=== PATIENT | female | born 1960 | race Caucasian/White ===

== ENCOUNTER → 2020-09-25 11:00 | Outpatient (CLI) | payer BC, SELFPAY ==
[2020-09-25 14:48] LABS: Basophils % 0.6 % (0.1-2.0); Eosinophils # 0.1 K/mm3 (0.0-0.4); Eosinophils % 2.4 % (0.1-12.0); Hematocrit 43.1 % (37.0-47.0); Hemoglobin 14.1 g/dL (12.2-16.2); Lymphocytes # 1.2 K/mm3 (0.7-4.5); Lymphocytes % 24.5 % (10-50); Mean Corpuscular HGB Conc 32.7 g/dL (31.8-35.4); Mean Corpuscular Volume 88.8 fl (81-99); Mean Platelet Volume 9.5 fl (7.4-10.4); Monocytes # 0.4 K/mm3 (0.1-1.0); Monocytes % 8.9 % (1.7-9.3); Neutrophils # 3.1 K/mm3 (1.8-7.8); Neutrophils % 63.6 % (37.0-80.0); Platelet Count 366 K/mm3 (142-424); Red Blood Count 4.85 M/mm3 (4.20-5.40); Red Cell Distribution Width 13.3 % (11.5-17.5); White Blood Count 4.9 K/mm3 (4.8-10.8)
== END ==
PROVIDERS: PCP Family Medicine; Visit Provider Family Medicine
DX: Z20.822 Contact with and (suspected) exposure to COVID-19 (principal)
CPT/HCPCS: 36415; 85025; U0003

== ENCOUNTER 2024-02-24 13:00 | Emergency (ER) | payer BC, SELFPAY ==
--- NOTE | 2024-02-24 13:02 | XR_ITS ---
FINAL REPORT CLINICAL HISTORY: fall, wrist pain COMPARISON: None FINDINGS: LEFT WRIST Three views of the left wrist were obtained. There is a mildly impacted transverse fracture of the distal radial metaphysis and a tiny fracture of the ulnar styloid. There is moderate chondrocalcinosis. Mild hypertrophic changes are noted at the basilar joint. The soft tissues are unremarkable. IMPRESSION: Distal radial metaphysis fracture and ulnar styloid fracture. Reviewed, Interpreted and Dictated by Inderjit Callejas MD Transcribed by Bridgette Montano Authenticated and . [facility]
[2024-02-24 13:10] VITALS: BP 151/92; PULSE 80; RESP 19; TEMP 36.8; O2SAT 98; BMI 29.8
--- NOTE | 2024-02-24 13:36 | ED_ITS ---
Discharge Plan Disposition Patient Disposition: Home, Self-Care Condition: Good Prescriptions Prescriptions: New ibuprofen 600 mg tablet 600 mg PO Q6HP PRN (Reason: Moderate Pain) Qty: 20 0RF Referrals Follow up/Referrals: Raymundo Lewis MD [Primary Care Provider] - See instructions Jose Carlos Kelley DO [Staff Physician] - See instructions (Call office for appointment) Activity Restrictions/Add. Instructions Additional Instructions/Restrictions: *RICE, Rest the extremity, Ice 15-20 minutes 3-4 times daily, Compress- wear the jose maria wrap as discussed as much as possible to help reduce swelling and pain, Elevate the extremity when at rest *Jose Maria wrap, orhthoglass and sling is for support and help control swelling, Do not remove orthoglass Be sure that is not to tight but not to loose either *Elevate when resting? *Ibuprofen 600 every 6-8 hours as needed for pain an inflammation. If need something more can take Tylenol in between doses of Ibuprofen to help Immediately follow up with your family doctor for new or worsening of symptoms, or no noticeable improvement over the next 3-5 days Call Orthopedic Clinical Impressions Clinical Impression: Fracture of wrist Qualifiers: Encounter type: initial encounter Fracture type: closed Laterality: left Q ualified Code(s): S62.102A - Fracture of unspecified carpal bone, left wrist, initial encounter for closed fracture Stand Alone Forms Stand Alone Forms: Work/School Release Instructions Patient Instructions: Wrist Fracture, DI for Wrist Fracture, How To Perform RICE (Rest, Ice, Compress, Elevate), Ibuprofen Print Language Print Language: Panamanian Discharge ED Provider: Nimo Mckeon [facility] General Stated complaint: fell left wrist pain Mode of Arrival: Ambulatory Source of Information: Patient Limitations: No Limitations Time Seen by Provider: 02/24/24 13:36 Description of Symptoms (Recalled from Triage Doc. by RN): PATIENT C/O INJURY TO LEFT WRIST AFTER SLIPPING ON ICE AND FALLING TODAY HEENT Symptoms (Recalled from RN notes): No Resp Symptoms (Recalled from RN notes): No Skin Symptoms (Recalled from RN notes): No MS Symptoms (Recalled from RN notes): Yes Functional Status (Recalled from RN notes): WNL History of Present Illness Provider Complaint: Patient states that she was packing in groceries earlier and she slipped on the ice and stuck her left hand out to catch her fall and been having pain in her left wrist and swelling in the wrist and top of hand so she came in to get it checked Denies any other injury and denies LOC Related Data Previous Rx's ?Medication ?Instructions ?Recorded ibuprofen 600 mg tablet 600 mg PO Q6HP PRN Moderate Pain 02/24/24 #20 tabs Allergies Allergy/AdvReac Type Severity Reaction Status Date / Time egg (EGG) Allergy Intermediate STOMACH Verified 02/24/24 13:21 PAIN Worker's Comp Is this a Worker's Comp case?: No PFSH [facility] Disclaimer: The information contained in this section may have been updated after the patient was seen, as this information can be updated by other users. Medical History (Updated 02/24/24 @ 13:47 by Nimo Mckeon APRN) No significant past medical history Social History Smoking Status: Unknown if ever smoked alcohol intake: never current occupational status: employed Travel in the last 8 weeks: None ROS Obtained: Yes All systems reviewed & no additional complaints except as documented and Yes Systems reviewed as appropriate & no additional complaints except as documented Constitutional Constitutional: Reports system reviewed and no additional complaints, except as documented and Reports as per HPI ENT Ears, Nose, Mouth, and Throat: Reports system reviewed and no additional complaints, except as documented and Reports as per HPI Cardiovascular Cardiovascular: Reports system reviewed and no additional complaints, except as documented and Reports as per HPI Respiratory Respiratory: Reports system reviewed and no additional complaints, except as documented and Reports as per HPI Gastrointestinal Gastrointestingal: Reports system reviewed and no additional complaints, except as documented and as per HPI Genitourinary Female Genitourinary: Reports system reviewed and no additional complaints, except as documented and Reports as per HPI Musculoskeletal Musculoskeletal: Reports system reviewed and no additional complaints, except as documented, Reports as per HPI and Reports other Comments: Pain and swelling in wrist since falling prior too arrival Physical Exam General General appearance: alert and in no apparent distress Respiratory Respiratory exam: Present normal lung sounds bilaterally; Absent respiratory distress or wheezes Cardiovascular Cardiovascular exam: Present regular rate, normal rhythm and normal heart sounds Abdominal Exam Abdominal exam: Present soft and normal bowel sounds; Absent distention or tenderness Expanded Upper Extremity Exam Left: Forearm/Wrist exam: Present tenderness, swelling and ecchymosis; Absent abrasion, laceration or erythema L/R Arms Top View: 2 1. tenderness pain and swelling after falling earlier on ice Vascular exam: Normal capillary refill and radial pulse Neurological Exam Neurological exam: Present alert, oriented X3 and normal gait Medical Decision Making Medical Records Screening: Per USPSTF and CDC recommendations, given the prevalence of disease in our region, it is our hospital?s policy to screen for HIV and viral Hepatitis for all patients aged 18 and over and those with ongoing risk factors. Mt Inquiry Pt receiving controlled substance: No Mt was queried for this patient: No Vital Signs: 02/24/24 13:10 Temperature 98.3 F Temperature Source Oral Pulse Rate [Right Brachial] 80 Respiratory Rate 19 Blood Pressure [Right Arm] 151/92 H Blood Pressure Mean [Right Arm] 111 Blood Pressure Source [Right Arm] Automatic Cuff Blood Pressure Position [Right Arm] Sitting 02 Sat by Pulse Oximetry 98 Oxygen Delivery Method Room Air Orders (Tests/Meds): ORDERS Category Date Time Status XR wrist LT min 3V Stat Exams 02/24/24 13:02 Taken Radiology Data #1: Image(s): Wrist Image Reviewed: Yes I have reviewed radiologist's interpretation Distal radial metaphysis fracture and ulnar styloid fracture Procedures Orthopedic Splinting/Casting Injury #1: Side: left Upper Extremity Injury Location: wrist Upper Extremity Immobilizer: sugar tong splint and applied by nurse/dr mckeon Post Cast/Splinting Neuro Status: intact and no change Post Cast/Splinting Vasc Status: intact and no change
[2024-02-24] MEDS: IBUPROFEN 400 MG TABLET 800 MG PO (14:15)
[2024-02-24 14:22] VITALS: BP 151/92; PULSE 80; RESP 19; TEMP 36.8; O2SAT 98
== END 2024-02-24 14:39 | disposition home or self-care (01) ==
PROVIDERS: Emergency Provider Nurse Practitioner; PCP Family Medicine
DX: S62.102A Fracture of unspecified carpal bone, left wrist, initial encounter for closed fracture (principal); W00.0XXA Fall on same level due to ice and snow, initial encounter
CPT/HCPCS: 29105; 73110; 99214; G0382

== ENCOUNTER 2024-03-09 14:39 | Outpatient (CLI) | payer BC, SELFPAY ==
--- NOTE | 2024-03-09 14:41 | XR_ITS ---
FINAL REPORT CLINICAL HISTORY: fx from fall COMPARISON: 02/24/2024 FINDINGS: LEFT WRIST Three views demonstrate interval placement of an overlying cast. There is a comminuted fracture of the distal radial metaphysis with intra-articular extension and dorsal angulation. Fracture fragments are similar to the previous study. Hypertrophic changes are seen of the basilar joint. . The soft tissues are unremarkable. IMPRESSION: Stable appearing distal radius fracture as described. Interval cast placement. Reviewed, Interpreted and Dictated by Inderjit Callejas MD Transcribed by Whitney Trejo Authenticated and [facility]
== END 2024-03-09 23:59 | disposition home or self-care (01) ==
LOC: RAD 14:39
PROVIDERS: PCP Family Medicine; Visit Provider Physician Assistant
DX: M25.532 Pain in left wrist (principal); S62.102A Fracture of unspecified carpal bone, left wrist, initial encounter for closed fracture
CPT/HCPCS: 73110

== ENCOUNTER 2024-03-10 09:26 | Outpatient (CLI) | payer BC, SELFPAY ==
--- NOTE | 2024-03-10 09:59 | ECG_ITS ---
APPROVED REPORT Exam: Resting ECG HR:77 bpm ECG Measurements Heart Rate 77 AXES WI 164 P 48 QRSd 89 QRS 9 QT 353 T 33 QTc 385 Conclusion SINUS RHYTHM WITH OCCASIONAL SUPRAVENTRICULAR PREMATURE COMPLEXES BORDERLINE ECG UNCONFIRMED REPORT Electronically signed by : Rodrigo Dias MD 03/11/2024 21:00:51
[2024-03-10 10:04] VITALS: BMI 29.0
[2024-03-10 10:31] LABS: Chloride 102 mmol/L (98-107); Potassium 3.7 mmoL/L (3.5-5.1); Sodium 139 mmol/L (136-145)
[2024-03-10 10:32] LABS: Basophils % 0.6 % (0.1-2.0); Eosinophils # 0.1 K/mm3 (0.0-0.4); Eosinophils % 0.9 % (0.1-12.0); Hematocrit 38.1 % (37.0-47.0); Hemoglobin 12.7 g/dL (12.2-16.2); Lymphocytes # 1.4 K/mm3 (0.7-4.5); Lymphocytes % 20.4 % (10-50); Mean Corpuscular HGB Conc 33.3 g/dL (31.8-35.4); Mean Corpuscular Hemoglobin 29.7 pg (27.0-31.2); Mean Corpuscular Volume 89.2 fl (81-99); Mean Platelet Volume 9.8 fl (7.4-10.4); Monocytes # 0.4 K/mm3 (0.1-1.0); Monocytes % 5.1 % (1.7-9.3); Neutrophils # 4.9 K/mm3 (1.8-7.8); Neutrophils % 72.7 % (37.0-80.0); Platelet Count 473 K/mm3 (142-424); Red Blood Count 4.27 M/mm3 (4.20-5.40); Red Cell Distribution Width 12.6 % (11.5-17.5); White Blood Count 6.8 K/mm3 (4.8-10.8)
[2024-03-10 10:34] LABS: Anion Gap 13.7 mEq/L (5-15); Blood Urea Nitrogen 9 mg/dl (7-17); Carbon Dioxide 27 mmol/L (22.0-30.0); Creatinine Clearance Estimated 74 mL/min (50-200); Estimated Glomerular Filt Rate 72 ml/min (>60); GFR (African American) 88 ML/MIN (>60)
[2024-03-10 10:35] LABS: Calcium 9.2 mg/dl (8.4-10.2); Glucose 108 mg/dl (74-100)
== END 2024-03-10 23:59 | disposition home or self-care (01) ==
LOC: PREOP 09:27
PROVIDERS: Nurse Anesthetist, Certified Registered; PCP Family Medicine; Visit Provider Orthopaedic Surgery
DX: I49.1 Atrial premature depolarization (principal); R94.31 Abnormal electrocardiogram [ECG] [EKG]
CPT/HCPCS: 80048; 85025; 93005

== ENCOUNTER 2024-03-13 08:20 | Day surgery (SDC) | payer BC, SELFPAY ==
[2024-03-10 10:15] VITALS: BMI 29.0
[2024-03-13] VITALS (11 sets, daily range): BP systolic 119–157; BP diastolic 38–101; PULSE 68–101; RESP 18–22; TEMP 35.8–36.9; O2SAT 91–97
[2024-03-13] MEDS: LACTATED RINGERS 1000ML 1,000 ML 100 ML IV (08:52)
--- NOTE | 2024-03-13 09:16 | P.PNANES_ITS ---
[facility] Disclaimer: The information contained in this section may have been updated after the patient was seen, as this information can be updated by other users. Medical History No significant past medical history Surgical History No history of previous surgery Family History Other Family history of cancer Social History (Updated 03/13/24 @ 08:39 by Kate Clement RN) Smoking Status: Current every day smoker alcohol intake: never substance use type: denies use current occupational status: employed Travel in the last 8 weeks: None [facility] Anesthesia Checklist Patient Identification Patient Identification: Verbal (Name & ) Structural Data Admitted From: Home Planned Operative Procedure/s: orif l radius Consent for Planned Operative Procedure(s) Verified: Yes NPO Status Verified Time NPO: 00:00 Additional verifications Anesthesia Reactions: No Hx Blood Transfusions: No Blood Transfusion Reaction: No Airway Assessment Mallampati Score:: Class II C-Spine Mobility Assessed: Yes TMJ Mobility Assessed: Yes Dentition: Good Dentition Neurological Assessment Level of Consciousness: Awake, Alert and Appropriate Anesthesia Plan Anesthesia Risk discussed: Yes Anesthesia Plan: Verified ASA Class: II Anesthesia Type: General w/block
[2024-03-13] MEDS: CEFAZOLIN SODIUM 2 GM in 0.9 % SODIUM CHLORIDE 100 ML IV (10:34)
--- NOTE | 2024-03-13 12:17 | XR_ITS ---
FINAL REPORT CLINICAL HISTORY: LEFT ORIF IN OR 0.9MIN 1.59MGY FINDINGS: FLUOROSCOPY LESS THAN 1 HOUR HISTORY: Left wrist ORIF FINDINGS: Fluoroscopic guidance was provided for left wrist ORIF. 2 spot films were obtained. 0.9 minutes of fluoroscopy time were used, with a dosage of 1.59 mGy. IMPRESSION: As above. Reviewed, Interpreted and Dictated by Inderjit Callejas MD Transcribed by Deloris Butts Authenticated and [facility]
--- NOTE | 2024-03-13 12:29 | P.OP_ITS ---
Date of procedure: 03/13/24 Pre-op Diagnosis:: Left distal radius intra-articular comminuted fracture Post-op Diagnosis:: Same Procedure performed:: Open reduction internal fixation left distal radius fracture intra-articular 3+ part Surgeon:: Jose Carlos Kelley DO Job Specification Writer(s):: Uriel KENNEDY RESIDENT PROGRAMS ASSISTANT:: Iman Stafford Anesthesia: GETA and regional Estimated blood loss (mL): 0 Clinical Note:: Implants Synthes distal radius plating system volar Operative findings:: Intra-articular distal radius fracture 3+ part dorsal comminution, partial early healing volar Operative note:: Patient identified preoperatively. Left wrist marked with yes my initials. Patient underwent a block with anesthesia. Then transported operative suite. Placed polyp removed. General anesthesia administered airway secured. The left upper extremity was then prepped and draped in normal sterile fashion. Once prepped and draped final operative timeout performed to identify proper patient procedure and extremity. Everyone involved the case agreed. There is no counter indications to beginning. Did receive preoperative antibiotics. Marking pen was used to gege plan incision over the volar wrist over the FCR tendon. Radial artery was marked with skin marker as well. Esmarch was used to exsanguinate the extremity pneumatic tourniquet inflated to 250 mmHg. Skin knife was used incise through skin dissection was taken down to identify the FCR the FCR tendon sheath was opened FCR was retracted radially floor of the FCR was opened sharply retractors were placed pronator quadratus cut in L-type fashion off the distal radius to identify the fracture site. There was not a large fracture hematoma. There was some partial healing of the volar cortex. Using x-ray and an osteotome volar cortex was punctured with the osteotome to allow for reduction. This was viewed on the x-ray AP and lateral views. Once the volar cortex was open using the osteotome closed reduction maneuver of the wrist was performed. That allowed us to get back to neutral tilt. Radial length was adequate. Plate was selected from the Synthes volar distal radius plate. Cortical screws placed in the shaft followed by the distal locking screws. These were all viewed on the x-ray to be in adequate length and arrangement. Additional locking screw was placed in the shaft. Irrigation of the wound performed. Pictures taken AP and lateral views and saved. Irrigation repeated deep layers closed with Vicryl stitch subcutaneous Vicryl stitch and 3-0 nylon the skin for closure. Sterile dressing placed followed by well-padded volar splint. Patient waken anesthesia taken recovery stable condition. Condition: stable Disposition: PACU Complications:: None apparent
--- NOTE | 2024-03-13 12:40 | P.PNANES_ITS ---
[facility] Anesthesia Record Part I Anesthesia Record I Intake, IV Amount: 500 Hydration: Adequate Estimated blood loss (mL): 15 Urine output (mL): 0 Blood Products used (#): none Blood Pressure: 119/38 SaO2: 91 Pulse Rate: 88 Airway Patency: Patent Respiratory Rate: 22 Temperature: 96.5 F Patient is:: Awake, Drowsy and Stable Stable to PACU at:: 12:40
--- NOTE | 2024-03-13 16:27 | EXP.ANES.II ---
[facility] Anesthesia Record Part II Anesthesia Record Part II Discharge Time: 13:05 Destination: Surgical Day Care (OP Surgery) PACU nurse assessment reviewed?: Yes Patient Condition:: Good Anesthesia Complications:: None Swallowing reflex intact?: Yes Airway Patency: Patent Cyanosis?: No Blood Pressure: 156/94 SaO2: 95 Respiratory Rate: 22 Pulse Rate: 73 Temperature: 97.3 F Mental Status: Alert & Oriented Pain level:: 0 Nausea and/or vomitting:: None Intake, IV Amount: 500 Hydration: Adequate
== END 2024-03-13 13:36 | disposition home or self-care (01) ==
PROVIDERS: PCP Family Medicine; Visit Provider Orthopaedic Surgery
PROC: (CPT 25609; principal; 2024-03-13 10:00)
DX: S52.572A Other intraarticular fracture of lower end of left radius, initial encounter for closed fracture (principal); W00.0XXA Fall on same level due to ice and snow, initial encounter; Y92.017 Garden or yard in single-family (private) house as the place of occurrence of the external cause
CPT/HCPCS: 25609; 73100; 76000; 96374; C1713; C1776; C9144; J0690; J1100; J1885; J2250; J2405; J3010; J7120

== ENCOUNTER 2024-03-28 12:38 | Outpatient (CLI) | payer BC, SELFPAY ==
--- NOTE | 2024-03-28 12:42 | XR_ITS ---
FINAL REPORT CLINICAL HISTORY: lt wrist pain..f/u fx COMPARISON: 03/09/2024 FINDINGS: LEFT WRIST THREE VIEW FINDINGS: Three views demonstrate that in the interval since the prior exam of March 09 an ORIF of a distal radial fracture has been performed. Anatomic reduction is present. An anterior plate and screws obscures the fracture line. A nondisplaced radial styloid fracture is again noted. IMPRESSION: Status post ORIF with anatomic reduction of a distal radial fracture. Reviewed, Interpreted and Dictated by Mona Harden MD Transcribed by Deloris Butts Authenticated and [facility]
== END 2024-03-28 23:59 | disposition home or self-care (01) ==
LOC: RAD 12:39
PROVIDERS: PCP Family Medicine; Visit Provider Orthopaedic Surgery
DX: M25.532 Pain in left wrist (principal); S52.532A Colles' fracture of left radius, initial encounter for closed fracture
CPT/HCPCS: 73110

== ENCOUNTER 2024-04-18 12:20 | Outpatient (CLI) | payer BC, SELFPAY ==
--- NOTE | 2024-04-18 12:22 | XR_ITS ---
FINAL REPORT CLINICAL HISTORY: lt wrist pain..f/u COMPARISON: 03/28/2024 FINDINGS: LEFT WRIST Three views demonstrate no acute fracture or dislocation. There is ORIF of the distal radius. Hardware is unremarkable. Fracture line remains evident but is less distinct than on prior exam. There is an ulnar styloid process fracture without further displacement. Bones are osteopenic. The visualized joint spaces are normally aligned. The soft tissues are unremarkable. IMPRESSION: Healing distal radial fracture without displacement. Reviewed, Interpreted and Dictated by Mona Harden MD Transcribed by Carli Duffy Authenticated and [facility]
== END 2024-04-18 23:59 | disposition home or self-care (01) ==
LOC: RAD 12:21
PROVIDERS: PCP Family Medicine; Visit Provider Orthopaedic Surgery
DX: M25.532 Pain in left wrist (principal); S52.532A Colles' fracture of left radius, initial encounter for closed fracture
CPT/HCPCS: 73110

== ENCOUNTER 2024-05-09 12:17 | Outpatient (CLI) | payer BC, SELFPAY ==
--- NOTE | 2024-05-09 12:21 | XR_ITS ---
FINAL REPORT CLINICAL HISTORY: left wrist orif. F/U COMPARISON: 04/18/2024 FINDINGS: LEFT WRIST Three views demonstrate a fracture of the ulnar styloid process without significant change from prior exam. Bones are osteopenic. There is ORIF of the distal radius. Hardware is intact. There is degenerative joint disease. Soft tissues are unremarkable. IMPRESSION: No significant interval change in ulnar styloid process fracture. Reviewed, Interpreted and Dictated by Radha Romero MD Transcribed by Carli Duffy Authenticated and [facility]
== END 2024-05-09 23:59 | disposition home or self-care (01) ==
LOC: RAD 12:18
PROVIDERS: PCP Family Medicine; Visit Provider Physician Assistant Surgical
DX: M25.532 Pain in left wrist (principal); S52.532A Colles' fracture of left radius, initial encounter for closed fracture
CPT/HCPCS: 73110

== ENCOUNTER 2024-08-21 11:28 | Outpatient (CLI) | payer BC, SELFPAY ==
--- OUTSIDE RECORDS SUMMARY | 2024-07-31 12:04 | XMS_ITS ---
[facility] Address [address] [place] [address] [address] [facility] [address] [place] [id number] Care Team Providers Care Manager Clinical Pharmacy Name Role Phone Raymundo Lewis Primary Care Provider REASON FOR VISIT due mamm, colonoscopy Encounters Encounter Location Date [facility] [address] [facility] [address] [facility] [address] [place] [phone] 07/31/2024 Raymundo Lewis Screening for breast cancer Z12.39 Assessments Encounter Date Diagnosis (ICD Code) Assessment Notes Treatment Notes Treatment Clinical Notes Section Notes 07/31/2024 Screening for breast cancer (ICD-10 - Z12.39) Plan Of Treatment Pending Test Test Name Order Date Mammogram 07/31/2024 Next Appt Details Provider Name:Raymundo Palomares ry, 01/26/2025 09:15:00 AM, [address] [facility] [address] [facility], [address], [place], [id number], Progress Notes * SIDNEY JACOMEOB:1960 (63 yo F)Acc No.[id number]:07/31/2024 Patient: Herminio EZCB FREDY :1960 A ge:63 Y S ex:Female Address:[place], [address] Subjective: * Chief Complaints: * D ue mamm, colonoscopy * Medical History: * Surgical History: * Hospitalization/Major Diagno stic Procedure: * Medications: Objective: * Vitals: * Physical Examination: Assessment: * Assessment: 1. S creening for breast cancer - Z12.39 (Primary) Plan: * Treatment: * Procedure Codes: * true * Date: Generated for Mike villeda/Nando/Bernadine on: 0 08/21/2024 11:42 AM EDT
--- OUTSIDE RECORDS SUMMARY | 2024-08-21 11:42 | XMS_ITS | Clinical Summary ---
Author Organization [facility] Address [address] [place] [address] Care Team Providers Care Willow Machine Tender Name Role Phone Raymundo Lewis MD Primary Care Provider Social History Tobacco Use Types Packs/Day Years Used Date Smoking Tobacco: Never Assessed Comments Unknown Sex and Gender Information Value Date Recorded Sex Assigned at Not on file Legal Sex Female 7:48 AM EDT Gender Identity Not on file Sexual Orientation Not on file Plan of Treatment Not on file Care Teams Willow Machine Tender Relationship Specialty Start Date End Date Raymundo Lewis MD [address] [facility] [address] [place] [address] PCP - General 10/10/20
--- NOTE | 2024-08-21 12:52 | MM_ITS ---
PROCEDURE INFORMATION: Exam: Bilateral Screening 3D Mammography Exam date and time: 08/21/2024 1:09 PM Age: 63 years old Clinical indication: Screening examination TECHNIQUE: Imaging protocol: Bilateral Screening tomosynthesis and 2D mammography including computer-aided detection (CAD) when performed. COMPARISON: 1. [facility] DA[facility] DIGITAL SCREEN BILATERAL 07/20/2018 3:58 PM 2. [facility] MOBILE BREAST TOMOSYNTHESIS SCREEN 07/08/2017 3:42 PM FINDINGS: MAMMOGRAPHY: Breast composition: There are scattered areas of fibroglandular density. Mass: Slightly indistinct mass measuring 0.6 cm in the right medial breast, believed to be in the upper inner quadrant, 8 cm from the nipple. Architectural distortion: None. Calcifications: No suspicious calcifications. Asymmetric density: None. Skin thickening: None. Axillary adenopathy: None. IMPRESSION: Patient to be recalled for spot compression views of the right breast in the CC and MLO projections, a full 90 degree lateral view, and right breast ultrasound for further evaluation of a right breast mass. ASSESSMENT: BI-RADS Category 0: Incomplete- Need Additional Imaging Evaluation.
== END 2024-08-21 23:59 | disposition home or self-care (01) ==
LOC: RAD 11:29
PROVIDERS: PCP Family Medicine; Visit Provider Family Medicine
DX: Z12.31 Encounter for screening mammogram for malignant neoplasm of breast (principal); N63.10 Unspecified lump in the right breast, unspecified quadrant; R92.323 Mammographic fibroglandular density, bilateral breasts
CPT/HCPCS: 77063; 77067

== ENCOUNTER 2024-08-24 07:03 | Outpatient (CLI) | payer BC, SELFPAY ==
--- OUTSIDE RECORDS SUMMARY | 2024-04-20 05:15 | XMS_ITS ---
[facility] Address [address] [address] [facility] [address] [place] [id number] Care Team Providers Care Customer Support Advisor Name Role Phone Raymundo Lewis Primary Care Provider Allergies No Known Allergies REASON FOR VISIT 3 week f/u Medications Medication SIG (Take, Route, Fr equency, Duration) Notes Start Date End Date Status Irbesartan 150 MG 1 tablet Orally Once a day; Duration: 90 days 03/30/2024 Active Vital Signs Blood pressure systolic 132 mm Hg 04/21/19 25 Blood pressure diastolic 90 mm Hg 025 Heart Rate 90 /min 04/20/2024 Height 64.25 in 04/20/2024 Weight 181.8 lbs 04/20/2024 BMI 30.96 kg/m2 04/20/2024 Encounters Encounter Location Date Provider Diagnosis Donna [address] [facility] [address] [facility] [address] [place] [id number] 04/20/2024 Raymundo Lewis Essential hypertensi on I10 Assessments Encounter Date Diagnosis (ICD Code) Assessment Notes Treatment Notes Treatment Clinical Notes Section Notes 04/20/2024 Essential hypertension (ICD-10 - I10) Plan Of Treatment Medication Medication Name Sig Start Date Stop Date Notes Irbesartan 150 MG 1 tablet Orally Once a day; Duration: 90 days 03/30/2024 Next Appt Details Follow Up: 3 Months, Reason: Provider Name:Raymundo nuñez, 01/26/2025 09:15:00 AM, [address] [facility] [address] [facility] [address], [place], [phone], Progress Notes * SIDNEY JACOMEOB:1960 (63 yo F)Acc No.[id number]:04/20/2024 Patient: FREDY MAY Provider: Lise Lewis M.D. :1960 A ge:63 Y S ex:Female Date:04/20/2024 Address:[address] [place] [address] Rd, [place], [id number] Subjective: * Chief Complaints: * 1 . 3 week f/u. * HPI: C ardiology: 63 year old female presents with c/o Blood Pressure Elevated?Pt here for 3 week f/u on hypertension. Pt was started on Irbesartan 150mg 03/30/2024. Pt has been checking bp at home and states it has been good. * ROS: D ERMATOLOGY: no R isabel. n o H celina. G ASTROENTEROLOGY: no N ausea. n o V omiting. U ROLOGY: no D ifficulty urinating. n o B lood in urine. * Medical History: 4 0 pack year smoking history as of 2016, Colon polyps, Dx: August 2016. * Surgical History: C olonoscopy 08/31/2016, Skin Lesion removed on left ear 08/28/2016, ORIF distal left radius fracture 02/24/2024. * Hospitalization/Major Diagno stic Procedure: D enies Past Hospitalization. * Family History: F ather: . M other: , diagnosed with Cancer. P aternal Grand Father: , diagnosed with Cancer. P aternal Grand Mother: , diagnosed with Cancer. M aternal Grand Father: . M aternal Grand Mother: . 2 brother(s) , 1 sister(s) - healthy. . Mother passed from colon cancer stage 4. * Social History: C URRENT TOBACCO USE: Yes S moking Status: P atient does smoke, p acks per day:?.5, S asha age of: 1 5. C affeine: yes, frequency: coffe, tea - 2 cups daily. Home smoke detector use: yes. Marital Status: Single. Alcohol: Yes, Type: , Frequency: ,Years: , Determination: , occasional. * Medications: T aking Irbesartan 150 MG Tablet 1 tablet Orally Once a day , Medication List reviewed and reconciled with the patient * Allergies: N .K.D.A. Objective: * Vitals: W t:181.8, Temp:97.8, BP:132/90, HR:90, Nurse:kk, Ht: 64.25, BMI:30.96. * Examination: C ardiology: General Appearance: p leasant, NAD. H eart sounds: R RR, normal S1, S2. L ungs: c lear, no rales or wheezes. Assessment: * Assessment: 1. E ssential hypertension - I10 (Primary) Plan: * Treatment: * Procedure Codes: 3 075F SYST BP GE 130 - 139MM HG, 3080F DIAST BP = 90 MM HG * Follow Up: 3 Months * Images: Billing Information: * Visit Code: 65904 Office Visit, Est Pt., Level 3. * Procedure Codes: 3075F SYST BP GE 130 - 139MM HG. 3080F DIAST BP = 90 MM HG. * Electronic signature of Reena Lewis MD on 08/24/2024 at 07:06 AM EDT Sign off status: Pending * Provider: Lise Lewis M.D. Date: 0 04/20/2024 Generated for Mike villeda/Nando/Louisitting on: 0 08/24/2024 07:06 AM EDT History and Physical Notes * HPI (History of Present Illness) Category Sub-Category Detail Notes Category Not es Cardiology Blood Pressure Elevated Pt here for 3 week f/u on hypertension. Pt was started on Irbesartan 150mg 03/30/2024. Pt has been checking bp at home and states it has been good Examination Category Sub-Category Detail Notes Category Not es Cardiology Lungs: clear, no rales or wheezes Heart sounds: RRR, normal S1, S2 General Appearance: pleasant, NAD
--- OUTSIDE RECORDS SUMMARY | 2024-07-21 09:30 | XMS_ITS ---
Author Organization [facility] Address [address] [facility] [address] [place] [id number] Care Team Providers Care Electrician Helper Name Role Phone Raymundo Lewis Primary Care Provider Allergies No Known Allergies Results Component Value Reference Range Notes P-Comprehensive Metabolic Pa lazaro (CMP) Reviewed date:07/24/2024 11:45:07 AM Interpretation: Performing Lab: Notes/Report: Test performed by [facility] [address] [place] [address] , [address], [place] [address] Tadeo Mendoza MD, Production Clerk CLIA: [id number] Sodium 136 135-145 mmol/L Potassium 4.2 3.5-5.3 mmol/L Chloride 100 97-108 mmol/L CO2 24 22-32 mmol/L Glucose 90 65-99 mg/dL BUN 12 8-23 mg/dL Creatinine 0.84 0.50-1.00 mg/dL Calcium 10.2 8.6-10.4 mg/dL eGFR by Creatinine 78 >59 mL/min/1.73m2 Protein 6.6 6.0-8.3 g/dL Albumin 4.4 3.5-5.3 g/dL Alkaline Phosphatase 186 35-121 IU/L ALT (SGPT) 14 <5-47 IU/L AST (SGOT) 14 <5-40 IU/L Bilirubin, Total 0.5 <0.2-1.2 mg/dL A/G Ratio 2.0 1.1-2.5 P-Lipid Panel Reviewed date:07/24/2024 11:45:07 AM Interpretation: Performing Lab: Notes/Report: Test performed by [facility], [address], [place] [address] Tadeo Mendoza MD, Production Clerk CLIA: [id number] Cholesterol 205 <200 mg/dL Triglycerides 147 <150 mg/dL HDL Cholesterol 51 >39 mg/dL Cholesterol / HDL Ratio 4.02 0.00-4.44 Ratio Non-HDL Cholesterol 154 <130 mg/dL LDL Cholesterol (Calculation) 125 <130 mg/dL LDL Cholesterol Levels* Less than 100 mg/dL Optimal 100 to 129 mg/dL Near Optimal/ Above Optimal 130 to 159 mg/dL Borderline High 160 to 189 mg/dL High 190 mg/dL and above Very High * Categories as recommended by the 2004 ATPIII guidelines LDL/HDL Ratio 2.4 <3.3 Ratio LDL Cholesterol Patient History Test Date: 03/30/2024 LDL Results: 127 Units: mg/dL % Change: - Test Date: 07/21/2024 LDL Results: 125 Units: mg/dL % Change: -1% P-TSH reflex to FT4 Reviewed date:07/24/2024 11:45:07 AM Interpretation: Performing Lab: Notes/Report: Test performed by [facility] [address] [place] [address] , [address], [place] [address] Tadeo Mendoza MD, Production Clerk CLIA: [id number] TSH reflex to FT4 1.35 0.43-5.25 mU/L REASON FOR VISIT 3 month checkup Medications Medication SIG (Take, Route, Fr equency, Duration) Notes Start Date End Date Status Irbesartan 150 MG 1 tablet Orally Once a day 03/30 Active Problems Problem Type SNOMED Code ICD Code Onset Dates Problem Status W/U Status Risk Notes Problem Hyperlipidemia (E78.5) Active confirmed Vital Signs Blood pressure systolic 120 mm Hg 07/22/19 25 Blood pressure diastolic 80 mm Hg 025 Heart Rate 96 /min 07/21/2024 Height 64.25 in 07/21/2024 Weight 181.6 lbs 07/21/2024 BMI 30.93 kg/m2 07/21/2024 Encounters Encounter Location Date Provider Diagnosis [facility] [address] [place] [id number] 07/21/2024 Raymundo Lewis Essential hypertensi on I10 ; Hyperlipidemia E78.5 ; Colon cancer screening Z12.11 ; Ex-cigarette smoker Z87.891 and Lung cancer screening declined by patient Z53.20 Assessments Encounter Date Diagnosis (ICD Code) Assessment Notes Treatment Notes Treatment Clinical Notes Section Notes 07/21/2024 Essential hypertension (ICD-10 - I10) 07/21/2024 Hyperlipidemia (ICD-10 - E78.5) 07/21/2024 Colon cancer screening (ICD-10 - Z12.11) 07/21/2024 Ex-cigarette smoker (ICD-10 - Z87.891) 07/21/2024 Lung cancer screening declined by patient (ICD-10 - Z53.20) Plan Of Treatment Medication Medication Name Sig Start Date Stop Date Notes Irbesartan 150 MG 1 tablet Orally Once a day 03/30/2024 Pending Test Test Name Order Date colonoscopy 07/21/2024 CT Scan : Chest, low dose 07/21/2024 Next Appt Details Follow Up: 6 Months, Reason: Provider Name:Raymundo Palomares ry, 01/26/2025 09:15:00 AM, [address], [address], [place], [place], [id number], Progress Notes * SIDNEY JACOMEOB:1960 (63 yo F)Acc No.[id number]:07/21/2024 Progress Notes Patient: FREDY MAY Provider: Lise Lewis M.D. :1960 A ge:63 Y S ex:Female Date:07/21/2024 Address:[address] [place] [address], [place], [id number] Subjective: * Chief Complaints: * 1 . 3 month checkup. * HPI: C ardiology: 63 year old female presents with c/o Blood Pressure Elevated?Pt is here today for a 3 month check up on hypertention. Pt sts she is no longer checking it at home since taking her medication. Pt sts it has been better. * ROS: D ERMATOLOGY: no R isaebl. n o H celina. G ASTROENTEROLOGY: no N ausea. n o V omiting. U ROLOGY: no D ifficulty urinating. n o B lood in urine. * Medical History: 4 0 pack year smoking history as of 2016, Colon polyps, Dx: August 2016, Hypertension, Hyperlipidemia. * Surgical History: C olonoscopy 08/31/2016, Skin Lesion removed on left ear 08/28/2016, ORIF distal left radius fracture 02/24/2024. * Family History: F ather: . M [...] Allergies: N .K.D.A. Objective: * Vitals: W t: 181.6, Temp: 97.9, BP: 120/80, HR: 96, Nurse: [facility], Ht: 64.25, BMI:30.93. * Examination: C ardiology: General Appearance: p leasant, NAD. H EENT: u nremarkable. H eart sounds: R RR, normal S1, S2. L ungs: c lear, no rales or wheezes.?Extremities: n o leg edema. Assessment: * Assessment: 1. E ssential hypertension - I10 (Primary) 2 . H yperlipidemia - E78.5 3 . C olon cancer screening - Z12.11 4 . E x-cigarette smoker - Z87.891 5 . L solo cancer screening declined by patient - Z53.20 Plan: * Treatment: Value Reference Range A /G Ratio 2.0 1.1-2.5 - * A lbumin 4.4 3.5-5.3 - g/dL * A lkaline Phosphatase 186 H 35-121 - IU/L * A LT (SGPT) 14 <5-47 - IU/L * A ST (SGOT) 14 <5-40 - IU/L * B ilirubin, Total 0.5 <0.2-1.2 - mg/dL * B UN 12 8-23 - mg/dL * C alcium 10.2 8.6-10.4 - mg/dL * C hloride 100 97-108 - mmol/L * C O2 24 22-32 - mmol/L * C reatinine 0.84 0.50-1.00 - mg/dL * G lucose 90 65-99 - mg/dL * P otassium 4.2 3.5-5.3 - mmol/L * S odium 136 135-145 - mmol/L * P rotein 6.6 6.0-8.3 - g/dL * e GFR by Creatinine 78 >59 - mL/min/1.73m2 * Raymundo Lewis 07/23/2024 0 6:19:02 PM EDT > Lab results are satisfactory, sent to to inform. Siobhan Patel 07/24/2024 11:43:54 AM EDT > pt informed of results 2.?Hyperlipidemia?LAB: P-Comprehensive Metabolic Panel (CMP) (Collection Date & Time - 07/21/2024 12:58 PM)* Value Reference Range A /G Ratio 2.0 1.1-2.5 - * A lbumin 4.4 3.5-5.3 - g/dL * A lkaline Phosphatase 186 H 35-121 - IU/L * A LT (SGPT) 14 <5-47 - IU/L * A ST (SGOT) 14 <5-40 - IU/L * B ilirubin, Total 0.5 <0.2-1.2 - mg/dL * B UN 12 8-23 - mg/dL * C alcium 10.2 8.6-10.4 - mg/dL * C hloride 100 97-108 - mmol/L * C O2 24 22-32 - mmol/L * C reatinine 0.84 0.50-1.00 - mg/dL * G lucose 90 65-99 - mg/dL * P otassium 4.2 3.5-5.3 - mmol/L * S odium 136 135-145 - mmol/L * P rotein 6.6 6.0-8.3 - g/dL * e GFR by Creatinine 78 >59 - mL/min/1.73m2 * Joshua Raymundo Durham 07/23/2024 0 6:19:02 PM EDT > Lab results are satisfactory, sent to to inform. Siobhan Patel 07/24/2024 11:43:54 AM EDT > pt informed of results ?LAB: P-Lipid Panel (Collection Date & Time - 07/21/2024 12:58 PM)* Value Reference Range C holesterol / HDL Ratio 4.02 0.00-4.44 - Ratio * C holesterol 205 H <200 - mg/dL * H DL Cholesterol 51 >39 - mg/dL * L DL Cholesterol (Calculation) 125 <130 - mg/d L * L DL/HDL Ratio 2.4 <3.3 - Ratio * N on-HDL Cholesterol 154 H <130 - mg/dL * T riglycerides 147 <150 - mg/dL * Raymundo Lewis 07/23/2024 0 6:19:02 PM EDT > Lab results are satisfactory, sent to to inform. Siobhan Patel 07/24/2024 11:43:54 AM EDT > pt informed of results ?LAB: P-TSH reflex to FT4 (Collection Date & Time - 07/21/2024 12:58 PM)* Value Reference Range T SH reflex to FT4 1.35 0.43-5.25 - mU/L * Raymundo Lewis 07/23/2024 0 6:19:02 PM EDT > Lab results are satisfactory, sent to to inform. Siobhan Patel 07/24/2024 11:43:54 AM EDT > pt informed of results 3.?Colon cancer screening?Imaging: colonoscopy* Dr. Romero, prefers 10/02/24 , early appt.Jeanette Acosta 07/25/2024 09:51:19 AM EDT > faxed to Shauna Kaye 08/04/2024 09:02:15 AM EDT >sent to Jeanette to follow up. Patient has not heard from anyone about scheduling for 10/02 in the AM if possible 4.?Ex-cigarette smoker?Imaging: CT Scan : Chest, low dose* Prefers early AM on a Wednesday Jeanette Acosta 08/03/2024 12:13:00 PM EDT > [facility] 08/14/2024 11:00:24 AM EDT > no auth required; CPT code 74145; faxed to [facility] Scheduling * Procedure Codes: G 8783 BP SCR PRFRM RCMDD DEFIND SCR INTVL, G8752 MOST RECENT SYSTOLIC BP < 140MM HG, G8754 MOST RECENT DIASTOLIC BP < 90MM HG * Follow Up: 6 Months * Images: Billing Information: * Visit Code: 08414 Office Visit, Est Pt., Level 4. * Procedure Codes: G8783 BP SCR PRFRM RCMDD DEFIND SCR INTVL. G8752 MOST RECENT SYSTOLIC BP < 140MM HG. G8754 MOST RECENT DIASTOLIC BP < 90MM HG. * Electronic signature of Reena Lewis MD on 08/24/2024 at 07:06 AM EDT Sign off status: Pending * Provider: Lise Lewis M.D. Date: 0 07/21/2024 Generated for Mike villeda/Nando/Louisitting on: 0 08/24/2024 07:06 AM EDT History and Physical Notes * HPI (History of Present Illness) Category Sub-Category Detail Notes Category Not es Cardiology Blood Pressure Elevated Pt is he re today for a 3 month check up on hypertention. Pt sts she is no longer checking it at home since taking her medication. Pt sts it has been better Examination Category Sub-Category Detail Notes Category Not es Cardiology Lungs: clear, no rales or wheezes HEENT: unremarkable Heart sounds: RRR, normal S1, S2 Extremities: no leg edema General Appearance: pleasant, NAD
--- OUTSIDE RECORDS SUMMARY | 2024-07-31 12:04 | XMS_ITS ---
Author Organization [facility] Address [address] [place] [address] [address] [facility] [address] [place] [phone] Care Team Providers Care Inspector Heating And Refrigeration Name Role Phone Raymundo Lewis Primary Care Provider REASON FOR VISIT due mamm, colonoscopy Encounters Encounter Location Date Provider [facility] [address] [facility] [address] [facility] [address] [place] [id number] 07/31/2024 Raymundo Lewis Screening for breast cancer Z12.39 Assessments Encounter Date Diagnosis (ICD Code) Assessment Notes Treatment Notes Treatment Clinical Notes Section Notes 07/31/2024 Screening for breast cancer (ICD-10 - Z12.39) Plan Of Treatment Pending Test Test Name Order Date Mammogram 07/31/2024 Next Appt Details Provider Name:Raymundo Palomares ry, 01/26/2025 09:15:00 AM, [address] [facility] [address] [facility], [address], [place], [id number], Progress Notes * SIDNEY JACOMEOB:1960 (63 yo F)Acc No.[id number]:07/31/2024 Patient: Herminio EZCB FREDY :1960 A ge:63 Y S ex:Female Address:[place], [address] Subjective: * Chief Complaints: * D ue mamm, colonoscopy * Medical History: * Surgical History: * Hospitalization/Major Diagno stic Procedure: * Medications: Objective: * Vitals: * Physical Examination: Assessment: * Assessment: 1. S creening for breast cancer - Z12.39 (Primary) Plan: * Treatment: * Procedure Codes: * true * Date: Generated for Mike villeda/Nando/Bernadine on: 0 08/24/2024 07:06 AM EDT
--- OUTSIDE RECORDS SUMMARY | 2024-08-24 07:06 | XMS_ITS | Clinical Summary ---
Author Organization [facility] Address [address] [place] [address] Care Team Providers Care Pump Installer Name Role Phone Raymundo Lewis MD Primary Care Provider Social History Tobacco Use Types Packs/Day Years Used Date Smoking Tobacco: Never Assessed Comments Unknown Sex and Gender Information Value Date Recorded Sex Assigned at Not on file Legal Sex Female 7:48 AM EDT Gender Identity Not on file Sexual Orientation Not on file Plan of Treatment Not on file Care Teams Pump Installer Relationship Specialty Start Date End Date Raymundo Lewis MD [address] [facility] [address] [place] [address] PCP - General 10/10/20
--- NOTE | 2024-08-24 07:07 | CT_ITS ---
FINAL REPORT TECHNIQUE: Axial images were obtained from the lung apex to the mid abdomen by computed tomography. This study was performed with techniques to keep radiation doses as low as reasonably achievable (ALARA). Individualized dose reduction techniques using automated exposure control or adjustment of mA and/or kV according to the patient's size were employed. CLINICAL HISTORY: SCREENING. smoker 1ppd for 48 years FINDINGS: CHEST CT LOW DOSE CTDI vol (mGy): 2.90 DLP (mGy-cm): 98.21 There is no axillary adenopathy. There is no hilar or mediastinal adenopathy. The heart is normal in size. There is mild coronary artery calcification. There is no pericardial or pleural effusion. Lung window images demonstrate no suspicious infiltrate or nodule. Limited images of the upper abdomen are unremarkable. IMPRESSION: Lung RADS category 1. Recommend 12 month follow-up low-dose chest CT. Reviewed, Interpreted and Dictated by Inderjit Callejas MD Transcribed by Lelo Donnelly Authenticated and . [facility]
--- OUTSIDE RECORDS SUMMARY | 2024-08-24 07:07 | XMS_ITS | Patient Health Record ---
Author Organization [facility] Address [address] [facility] [address] [place] [id number] Care Team Providers Care Cripple Cutter Name Role Phone Raymundo Lewis Primary Care Provider [phone] Allergies No Known Allergies Results Component Value Reference Range Notes P-Comprehensive Metabolic Pa lazaro (CMP) Reviewed date:07/24/2024 11:45:07 AM Interpretation: Performing Lab: Notes/Report: Test performed by [facility] [address] [place] [address] , [address], [place] [address] Tadeo Mendoza MD, Shellfish Harvester CLIA: [id number] Sodium 136 135-145 mmol/L Potassium 4.2 3.5-5.3 [...] Interpretation: Performing Lab: Notes/Report: Test performed by [employer] [facility] , [facility], [place] [address] Tadeo Mendoza MD, Shellfish Harvester CLIA: [id number] Cholesterol 205 <200 mg/dL Triglycerides 147 <150 [...] Interpretation: Performing Lab: Notes/Report: Test performed by [facility] [address] [place] [address] , [address], [place] [address] Tadeo Mendoza MD, Shellfish Harvester CLIA: [id number] TSH reflex to FT4 1.35 0.43-5.25 mU/L CBC Venipuncture (in house) Reviewed date:03/31/2024 08:57:43 AM Interpretation:plt 419 Performing Lab: Notes/Report: plt 419 wbc 7.3 3.5 - 10 lymph 17.3% 15 - 50 mid 4.3% 2 - 15 gran 78.4% 35 - 80 rbc 4.77 3.5 - 5.5 hgb 14.0 11.5 - 16.5 hct 42.3 35 - 55 mcv 88.8 75 - 100 mch 29.5 25 - 35 mchc 33.2 31 - 38 platlet 419 100 - 400 P-Basic Metabolic Panel (BMP ) Reviewed date:03/31/2024 08:57:43 AM Interpretation:Glu 102, BUN 7 Performing Lab: Notes/Report: Test performed by [facility] [address] [place] [address] , [place] [address] Tadeo Mendoza MD, Shellfish Harvester CLIA: [id number] Sodium 139 135-145 mmol/L Potassium 4.4 3.5-5.3 mmol/L Chloride 103 97-108 mmol/L CO2 26 22-32 mmol/L Glucose 102 65-99 mg/dL BUN 7 8-23 mg/dL Creatinine 0.78 0.50-1.00 mg/dL Calcium 10.1 8.6-10.4 mg/dL eGFR by Creatinine 85 >59 mL/min/1.73m2 P-Lipid Panel Reviewed date:03/31/2024 08:57:43 AM Interpretation:Chol 209, Non-HDL 157 Performing Lab: Notes/Report: Test performed by [facility] [address] [place] [address] Jonathan Workman, [place] [address] Tadeo Mendoza MD, Shellfish Harvester CLIA: [id number] Cholesterol 209 <200 mg/dL Triglycerides 148 <150 mg/dL HDL Cholesterol 52 >39 mg/dL Cholesterol / HDL Ratio 4.02 0.00-4.44 Ratio Non-HDL Cholesterol 157 <130 mg/dL LDL Cholesterol (Calculation) 127 <130 mg/dL LDL Cholesterol Levels* Less than 100 mg/dL Optimal 100 to 129 mg/dL Near Optimal/ Above Optimal 130 to 159 mg/dL Borderline High 160 to 189 mg/dL High 190 mg/dL and above Very High * Categories as recommended by the 2004 ATPIII guidelines LDL/HDL Ratio 2.5 <3.3 Ratio LDL Cholesterol Patient History Test Date: 03/30/2024 LDL Results: 127 Units: mg/dL % Change: - P-TSH reflex to FT4 Reviewed date:03/31/2024 08:57:43 AM Interpretation:Normal Performing Lab: Notes/Report: Test performed by [facility] , [address], [place] [address] Tadeo Mendoza MD, Shellfish Harvester CLIA: [id number] TSH reflex to FT4 0.92 0.43-5.25 mU/L P-Microalbumin/Creatinine, R andom Urine Sample Reviewed date:03/31/2024 08:57:43 AM Interpretation:Normal Performing Lab: Notes/Report: Test performed by [facility] [address] [place] [address] , [address], [place] [address] Tadeo Mendoza MD, Shellfish Harvester CLIA: [id number] Albumin/Creatinine Ratio, Urine 5 0-30 ug/m g Microalbumin, Urine, Random 0.4 Creatinine, Urine 78.3 P-Uric Acid Reviewed date:03/31/2024 08:57:43 AM Interpretation:Normal Performing Lab: Notes/Report: Test performed by [facility] [address] [place] [address] , [address], [place] [address] Tadeo Mendoza MD, Shellfish Harvester CLIA: [id number] Uric Acid 4.8 2.4-7.0 mg/dL PREM Reviewed date:02/24/2024 04:17:41 PM Interpretation:Reactivate Patient Performing Lab: Notes/Report: Reactivate Patient Reason For Referral Diagnosis 1 Unspecified fracture of the lower end of left radius, initial encounter for closed fracture (S52.502A) Diagnosis 2 Unspecified fracture of lower end of left ulna, initial encounter for closed fracture (S52.602A) Referral Organization [facility] Referring Provider First Name Raymundo Referring Provider Last Name Joshua Referring Provider Speciality Family Pra ctice Referred Provider Jose Carlos Kelley Referred Provider Specialty Orthopedic [facility] General Notes Akanksha Pacheco 025 11:07:00 AM > Pt being seen by Bishop Vargas 02/29/24 @ 1:45 Referral Priority Routine Medications Medication SIG (Take, Route, Fr equency, Duration) Notes Start Date End Date Status Irbesartan 150 MG 1 tablet Orally Once a day 03/30 Active Immunizations Vaccine Route Administration Date Status Comme nts Hepatitis A (adult) Unknown 02/01/2018 Administered COVID 19 Moderna Unknown 04/20/2020 Administered COVID 19 Moderna Unknown 05/18/2020 Administered Problems Problem Type SNOMED Code ICD Code Onset Dates Problem Status W/U Status Risk Notes Problem Hyperlipidemia (47342423) Hyperlipidemia (E78.5) Active confirmed Problem Essential hypertension (07156663) Essential hypertension (I10) Active confirmed Problem Adjustment disorder (67967598) Adjustment disorder, unspecified type (F43.20) Active confirmed Problem Tobacco user (210919267) Cigarette nicotine dependence without complication (F17.210) Active confirmed Vital Signs Heart Rate 96 /min 07/21/2024 Blood pressure diastolic 80 mm Hg 07/21/2024 Height 64.25 in 07/21/2024 Blood pressure systolic 120 mm Hg 07/21/2024 Weight 181.6 lbs 07/21/2024 BMI 30.93 kg/m2 07/21/2024 Encounters Encounter Location Date Provider Diagnosis [facility] [address] [facility] [address] [place], [place] [id number] 02/29/2024 Raymundo Jeanerette Unspecified fracture of the lower end of left radius, initial encounter for closed fracture S52.502A and Unspecified fracture of lower end of left ulna, initial encounter for closed fracture S52.602A [facility] [address] [facility] [address] [place], [place] [id number] 03/30/2024 Raymundo Jeanerette Essential hypertensi on I10 [facility] [address] [facility] [address] [place], [place] [id number] 04/20/2024 Raymundo Jeanerette Essential hypertensi on I10 [facility] [address] [facility] [address] [place] [id number] 07/21/2024 Raymundo Jeanerette Essential hypertensi on I10 ; Hyperlipidemia E78.5 ; Colon cancer screening Z12.11 ; Ex-cigarette smoker Z87.891 and Lung cancer screening declined by patient Z53.20 [facility] [address] [facility] [address] [place] [id number] 03/31/2024 Raymundo Jeanerette [facility] [address] [facility] [address] [place] [id number] 04/10/2024 Raymundo Jeanerette [facility] [address] [facility] [address] [place], [place] [id number] 07/31/2024 Raymundo Jeanerette Screening for breast cancer Z12.39 Assessments Encounter Date Diagnosis (ICD Code) Assessment Notes Treatment Notes Treatment Clinical Notes Section Notes 03/30/2024 Essential hypertension (ICD-10 - I10) 04/20/2024 Essential hypertension (ICD-10 - I10) 07/31/2024 Screening for breast cancer (ICD-10 - Z12.39) 02/29/2024 Unspecified fracture of the lower end of left radius, initial encounter for closed fracture (ICD-10 - S52.502A) 02/29/2024 Unspecified fracture of lower end of left ulna, initial encounter for closed fracture (ICD-10 - S52.602A) 07/21/2024 Hyperlipidemia (ICD-10 - E78.5) 07/21/2024 Essential hypertension (ICD-10 - I10) 07/21/2024 Colon cancer screening (ICD-10 - Z12.11) 07/21/2024 Ex-cigarette smoker (ICD-10 - Z87.891) 07/21/2024 Lung cancer screening declined by patient (ICD-10 - Z53.20) 02/29/2024 Other Xray report reviewed. Dr. Kelley will see patient this afternoon in his office Plan Of Treatment Pending Test Test Name Order Date colonoscopy 07/21/2024 Mammogram 07/31/2024 CT Scan : Chest, low dose 07/21/2024 Next Appt Details Provider Name:Raymundo Palomares ry, 01/26/2025 09:15:00 AM, [address], [address], [place], [place], [id number], Insurance Providers Payer Name Payer Address Payer Phone Subscriber Number Group Number Insured Name Patient Relationship to Insured Coverage Start Date Coverage End Date [employer] [address] [place] [address] [id number] FREDY JACOME Self - patient is the insured Medical (General) History Medical History History ICD Code 40 pack year smoking history as of 2016 Colon polyps, Dx: August 2016 Hypertension hyperlipidemia Surgical History Surgery Date(Month/Year) Colonoscopy 08/31/2016 Skin Lesion removed on left ear 08/29/19 ORIF distal left radius fracture 025
== END 2024-08-24 23:59 | disposition home or self-care (01) ==
LOC: RAD 07:05
PROVIDERS: PCP Family Medicine; Visit Provider Family Medicine
DX: I25.10 Atherosclerotic heart disease of native coronary artery without angina pectoris (principal); Z13.9 Encounter for screening, unspecified; Z87.891 Personal history of nicotine dependence
CPT/HCPCS: 71271

== ENCOUNTER 2024-10-02 12:50 | Outpatient (CLI) | payer BC, SELFPAY ==
--- OUTSIDE RECORDS SUMMARY | 2024-07-21 09:30 | XMS_ITS ---
Author Organization [facility] Address [address] [facility] [address] [place] [id number] Care Team Providers Care Press Operator Printing Name Role Phone Raymundo Lewis Primary Care Provider Allergies No Known Allergies Results Component Value Reference Range Notes P-Comprehensive Metabolic Pa lazaro (CMP) Reviewed date:07/24/2024 11:45:07 AM Interpretation: Performing Lab: Notes/Report: Test performed by [facility] [address] [place] [address] , [address], [place] [address] Tadeo Mendoza MD, Field Pipelines Supervisor CLIA: [id number] Sodium 136 135-145 mmol/L Potassium 4.2 3.5-5.3 [...] Interpretation: Performing Lab: Notes/Report: Test performed by [facility], [address], [place] [address] Tadeo Mendoza MD, Field Pipelines Supervisor CLIA: [id number] Cholesterol 205 <200 mg/dL Triglycerides 147 <150 [...] Interpretation: Performing Lab: Notes/Report: Test performed by [facility] [address] [place] [address] , [address], [place] [address] Tadeo Mendoza MD, Field Pipelines Supervisor CLIA: [id number] TSH reflex to FT4 1.35 0.43-5.25 mU/L CT Scan : Chest, low dose Reviewed date:08/28/2024 01:10:22 PM Interpretation:Negative, annual f/u Performing Lab: Notes/Report: Negative, annual f/u REASON FOR VISIT 3 month checkup Medications [...] 07/21/2024 Encounters Encounter Location Date Provider Diagnosis [facility] [address] [facility] [address] [place] [phone] 07/21/2024 Raymundo Lewis Essential hypertensi on I10 [...] Test Test Name Order Date colonoscopy 07/21/2024 Next Appt Details Follow Up: 6 Months, Reason: Provider Name:Raymundo Palomares ry, 01/26/2025 09:15:00 AM, [address] [facility], [address], [place], [place], [id number], Progress Notes * SIDNEY JACOMEOB:1960 (63 yo F)Acc No.[id number]:07/21/2024 Progress Notes Patient: FREDY MAY Provider: Lise Lewis M.D. :1960 A ge:63 Y S ex:Female Date:07/21/2024 Address:[address] [place] [address], [id number] Subjective: * Chief Complaints: * 1 . 3 month checkup. * HPI: C ardiology: 63 year old female presents with c/o Blood Pressure Elevated?Pt is here today for a 3 month check up on hypertention. Pt sts she is no longer checking it at home since taking her medication. Pt sts it has been better. * ROS: D ERMATOLOGY: no R isabel. [...] Temp: 97.9, BP: 120/80, HR: 96, Nurse: zeyad, Ht: 64.25, BMI:30.93. * Examination: C ardiology: [...] by Creatinine 78 >59 - mL/min/1.73m2 * JoshuaRaymundo 07/23/2024 0 6:19:02 PM EDT > Lab [...] 4.?Ex-cigarette smoker?Imaging: CT Scan : Chest, low dose (Performed Date - 08/24/2024)?Negative, annual f/u* Prefers early AM on a Wednesday Jeanette Acosta 08/03/2024 12:13:00 PM EDT > [facility] 08/14/2024 11:00:24 AM EDT > no auth required; CPT code 16041; faxed to [facility] Yesenia Gaffney 08/28/2024 01:09:53 PM EDT > Pt informed * Procedure Codes: G 8783 BP SCR PRFRM RCMDD DEFIND SCR INTVL, G8752 MOST RECENT SYSTOLIC BP < 140MM HG, G8754 MOST RECENT DIASTOLIC BP < 90MM HG * Follow Up: 6 Months * Images: Billing Information: * Visit Code: 23414 Office Visit, Est Pt., Level 4. * Procedure Codes: G8783 BP SCR PRFRM RCMDD DEFIND SCR INTVL. G8752 MOST RECENT SYSTOLIC BP < 140MM HG. G8754 MOST RECENT DIASTOLIC BP < 90MM HG. * Electronic signature of Reena Lewis MD on 10/02/2024 at 12:51 PM EDT Sign off status: Pending * Provider: Lise Lewis M.D. Date: 0 07/21/2024 Generated for Mike villeda/Nando/Bernadine on: 0 10/02/2024 12:51 PM EDT History and Physical Notes * HPI [...]
--- OUTSIDE RECORDS SUMMARY | 2024-09-08 06:18 | XMS_ITS ---
Author Organization [facility] Address [address] [place] [address] [address] [facility] [address] [place] [id number] Care Team Providers Care Air Sampling And Monitoring Name Role Phone Raymundo Lewis Primary Care Provider [phone] REASON FOR VISIT abnormal Mammogram Encounters Encounter Location Date Provider Diagnosis [facility] [place] [address] [facility] [address] [facility] [address] [place] [id number] 09/08/2024 Raymundo Lewis Abnormal mammogram o f right breast R92.8 Assessments Encounter Date Diagnosis (ICD Code) Assessment Notes Treatment Notes Treatment Clinical Notes Section Notes 09/08/2024 Abnormal mammogram of right breast (ICD-10 - R92.8) Plan Of Treatment Pending Test Test Name Order Date Ultrasound : Breast, right 09/08/2024 Mammogram : additional views right breas t 09/08/2024 Next Appt Details Provider Name:Raymundo Palomares , 01/26/2025 09:15:00 AM, [address] [facility] [address] [facility], [address], [place], [id number], Progress Notes * SIDNEY JACOMEOB:1960 (63 yo F)Acc No.[id number]:09/08/2024 Patient: Herminio PRADEEP FREDY :1960 A ge:63 Y S ex:Female Address: [address] [place], [address] Subjective: * Chief Complaints: * a bnormal Mammogram * Medical History: * Surgical History: * Hospitalization/Major Diagno stic Procedure: * Medications: Objective: * Vitals: * Physical Examination: Assessment: * Assessment: 1. A bnormal mammogram of right breast - R92.8 (Primary) Plan: * Treatment: * Procedure Codes: * true * Date: Generated for Mike villeda/Nando/Louisitting on: 0 10/02/2024 12:52 PM EDT
--- OUTSIDE RECORDS SUMMARY | 2024-10-02 12:51 | XMS_ITS | Clinical Summary ---
Author Organization [facility] Address [address] [facility], [address] [place] [address] Care Team Providers Care Pickling Machine Operator Name Role Phone Raymundo Lewis MD Primary Care Provider [phone] Social History Tobacco Use Types Packs/Day Years Used Date Smoking Tobacco: Never Assessed Comments Unknown Sex and Gender Information Value Date Recorded Sex Assigned at Not on file Legal Sex Female 7:48 AM EDT Gender Identity Not on file Sexual Orientation Not on file Plan of Treatment Not on file Care Teams Pickling Machine Operator Relationship Specialty Start Date End Date Raymundo Lewis MD [address] [facility] [address] [place] [address] PCP - General 10/10/20
--- OUTSIDE RECORDS SUMMARY | 2024-10-02 12:52 | XMS_ITS | Patient Health Record ---
Author Organization [facility] Address [address] [facility] [address] [place] [id number] Care Team Providers Care Laundry Manager Name Role Phone Raymundo Lewis Primary Care Provider [phone] Allergies No Known Allergies Results Component Value Reference Range Notes P-Comprehensive Metabolic Pa lazaro (CMP) Reviewed date:07/24/2024 11:45:07 AM Interpretation: Performing Lab: Notes/Report: Test performed by [facility] [address] [place] [address] , [address], [place] [address] Tadeo Mendoza MD, Labor Relations Consultant CLIA: [id number] Sodium 136 135-145 mmol/L Potassium 4.2 3.5-5.3 [...] Interpretation: Performing Lab: Notes/Report: Test performed by [employer] [facility] [place] , [facility], [place] [address] Tadeo Mendoza MD, Labor Relations Consultant CLIA: [id number] Cholesterol 205 <200 mg/dL Triglycerides 147 <150 [...] Interpretation: Performing Lab: Notes/Report: Test performed by [facility] [facility] [address] , [address], [place] [address] Tadeo Mendoza MD, Labor Relations Consultant CLIA: [id number] TSH reflex to FT4 1.35 0.43-5.25 mU/L CT Scan : Chest, low dose Reviewed date:08/28/2024 01:10:22 PM Interpretation:Negative, annual f/u Performing Lab: Notes/Report: Negative, annual f/u Mammogram Reviewed date:09/08/2024 10:19:17 AM Interpretation:needs additional imaging Performing Lab: Notes/Report: needs additional imaging P-Uric Acid Reviewed date:03/31/2024 08:57:43 AM Interpretation:Normal Performing Lab: Notes/Report: Test performed by [facility] [address] , [address], [place] [address] Tadeo Mendoza MD, Labor Relations Consultant CLIA: [id number] Uric Acid 4.8 2.4-7.0 mg/dL P-Microalbumin/Creatinine, R andom Urine Sample Reviewed date:03/31/2024 08:57:43 AM Interpretation:Normal Performing Lab: Notes/Report: Test performed by [facility] [facility] [address] Workman, [address], [place] [address] Tadeo Mendoza MD, Labor Relations Consultant CLIA: [id number] Albumin/Creatinine Ratio, Urine 5 0-30 ug/m g Microalbumin, Urine, Random 0.4 Creatinine, Urine 78.3 P-TSH reflex to FT4 Reviewed date:03/31/2024 08:57:43 AM Interpretation:Normal Performing Lab: Notes/Report: Test performed by [facility] [address] , [address], [place] [address] Tadeo Mendoza MD, Labor Relations Consultant CLIA: [id number] TSH reflex to FT4 0.92 0.43-5.25 mU/L P-Lipid Panel Reviewed date:03/31/2024 08:57:43 AM Interpretation:Chol 209, Non-HDL 157 Performing Lab: Notes/Report: Test performed by [facility] [place] [address], [place] [address] Tadeo Mendoza MD, Labor Relations Consultant AISHA: [id number] Cholesterol 209 <200 mg/dL Triglycerides 148 <150 [...] Results: 127 Units: mg/dL % Change: - P-Basic Metabolic Panel (BMP ) Reviewed date:03/31/2024 08:57:43 AM Interpretation:Glu 102, BUN 7 Performing Lab: Notes/Report: Test performed by [facility] [place] [place] [address] Tadeo Mendoza MD, Labor Relations Consultant CLIA: [id number] Sodium 139 135-145 mmol/L Potassium 4.4 3.5-5.3 mmol/L Chloride 103 97-108 mmol/L CO2 26 22-32 mmol/L Glucose 102 65-99 mg/dL BUN 7 8-23 mg/dL Creatinine 0.78 0.50-1.00 mg/dL Calcium 10.1 8.6-10.4 mg/dL eGFR by Creatinine 85 >59 mL/min/1.73m2 CBC Venipuncture (in house) Reviewed date:03/31/2024 08:57:43 [...] - 38 platlet 419 100 - 400 PREM Reviewed date:02/24/2024 04:17:41 PM Interpretation:Reactivate Patient Performing Lab: Notes/Report: Reactivate Patient Reason For Referral Diagnosis 1 Unspecified fracture of the lower end of left radius, initial encounter for closed fracture (S52.502A) Diagnosis 2 Unspecified fracture of lower end of left ulna, initial encounter for closed fracture (S52.602A) [facility] [facility] Referring Provider First Name Raymundo Referring Provider Last Name Joshua Referring Provider Speciality [facility] Referred Provider Jose Carlos Kelley Referred Provider Specialty Orthopedic S urgery General Notes Akanksha Pacheco 025 11:07:00 AM > Pt being seen by Bishop Vargas 02/29/24 @ 1:45 Referral Priority Routine Medications Medication SIG (Take, Route, Fr equency, Duration) Notes Start Date End Date Status Irbesartan 150 MG 1 tablet Orally Once a day; Duration: 90 days 03/30/2024 Active Immunizations Vaccine Route Administration Date Status Comme nts Hepatitis A (adult) Unknown 02/01/2018 Administered COVID 19 Moderna Unknown 04/20/2020 Administered COVID 19 Moderna Unknown 05/18/2020 Administered Problems Problem Type SNOMED Code ICD Code Onset Dates Problem Status W/U Status Risk Notes Problem Hyperlipidemia (59647743) Hyperlipidemia (E78.5) Active confirmed Problem Essential hypertension (89147357) Essential hypertension (I10) Active confirmed Problem Adjustment disorder (82715613) Adjustment disorder, unspecified type (F43.20) Active confirmed Problem Tobacco user (413273122) Cigarette nicotine dependence without complication (F17.210) Active confirmed Vital Signs Heart Rate 96 /min 07/21/2024 Blood pressure diastolic 80 mm Hg 07/21/2024 Height 64.25 in 07/21/2024 Blood pressure systolic 120 mm Hg 07/21/2024 Weight 181.6 lbs 07/21/2024 BMI 30.93 kg/m2 07/21/2024 Encounters Encounter Location Date Provider Diagnosis [facility] [address] [place], [place] [id number] 02/29/2024 Raymundo Bailey Unspecified fracture of the lower end of left radius, initial encounter for closed fracture S52.502A and Unspecified fracture of lower end of left ulna, initial encounter for closed fracture S52.602A [facility] [address] [place], [place] [id number] 03/30/2024 Raymundo Bailey Essential hypertensi on I10 [facility] [address] [place], [place] [id number] 04/20/2024 Raymundo Bailey Essential hypertensi on I10 [facility] [address] [place], [place] [id number] 07/21/2024 Raymundo Bailey Essential hypertensi on I10 ; Hyperlipidemia E78.5 ; Colon cancer screening Z12.11 ; Ex-cigarette smoker Z87.891 and Lung cancer screening declined by patient Z53.20 [facility] [address] [place], [place] [id number] 03/31/2024 Raymundo Bailey [facility] [address] [place], [place] [id number] 04/10/2024 Raymundo Bailey [facility] [address] [place], [place] [id number] 07/31/2024 Raymundo Bailey Screening for breast cancer Z12.39 [facility] [address] [facility] [address] [place] [id number] 09/08/2024 Raymundomicheal RenteriaBailey Abnormal mammogram o f right breast R92.8 [facility] [address] [place] [id number] 10/02/2024 Raymundomicheal Lewis Essential hypertensi on I10 Assessments Encounter Date Diagnosis (ICD Code) Assessment Notes Treatment Notes Treatment Clinical Notes Section Notes 02/29/2024 Unspecified fracture of the lower end of left radius, initial encounter for closed fracture (ICD-10 - S52.502A) 02/29/2024 Unspecified fracture of lower end of left ulna, initial encounter for closed fracture (ICD-10 - S52.602A) 03/30/2024 Essential hypertension (ICD-10 - I10) 04/20/2024 Essential hypertension (ICD-10 - I10) 07/31/2024 Screening for breast cancer (ICD-10 - Z12.39) 09/08/2024 Abnormal mammogram of right breast (ICD-10 - R92.8) 10/02/2024 Essential hypertension (ICD-10 - I10) 07/21/2024 Hyperlipidemia (ICD-10 - E78.5) 07/21/2024 Essential hypertension (ICD-10 - I10) 07/21/2024 Colon cancer screening (ICD-10 - Z12.11) 07/21/2024 Ex-cigarette smoker (ICD-10 - Z87.891) 07/21/2024 Lung cancer screening declined by patient (ICD-10 - Z53.20) 02/29/2024 Other Xray report reviewed. Dr. Kelley will see patient this afternoon in his office Plan Of Treatment Pending Test Test Name Order Date Ultrasound : Breast, right 09/08/2024 colonoscopy 07/21/2024 Mammogram : additional views right breas t 09/08/2024 Next Appt Details Provider Name:Raymundo Palomares ry, 01/26/2025 09:15:00 AM, [address] [facility], [address], [place], [id number], Insurance Providers Payer Name Payer Address Payer Phone Subscriber Number Group Number Insured Name Patient Relationship to Insured Coverage Start Date Coverage End Date J[employer]E [employer] [facility] [address] [place] [address] [id number] FREDY JACOME Self - patient is the insured Medical (General) History Medical History History ICD Code 40 pack year smoking history as of 2016 Colon polyps, Dx: August 2016 Hypertension hyperlipidemia Surgical History Surgery Date(Month/Year) Colonoscopy 08/31/2016 Skin Lesion removed on left ear 08/29/19 17 ORIF distal left radius fracture 025
--- NOTE | 2024-10-02 12:55 | US_ITS ---
PROCEDURE INFORMATION: Exam: US Right Breast, Complete MG Right Diagnostic Breast Tomosynthesis Exam date and time: 10/02/2024 1:18 PM Age: 63 years old Clinical indication: Callback from screening for a right breast finding. TECHNIQUE: Imaging protocol: Complete ultrasound of all four quadrants of the right breast and the retroareolar regions, including ultrasound of the axilla when performed. Right Diagnostic tomosynthesis and 2D mammography including computer-aided detection (CAD) when performed. Unilateral or bilateral exam. COMPARISON: MG MM DIG SCREENING MAMM BI W/CAD 08/21/2024 1:09 PM FINDINGS: MAMMOGRAPHY: Breast composition: There are scattered areas of fibroglandular density. Breast mammogram findings: Spot compression views demonstrate a partially circumscribed oval mass in the right medial breast that measures 0.7 cm, which is best visualized in the craniocaudal projection. ULTRASOUND: Breast ultrasound findings: Ultrasound of the right medial breast demonstrates a cyst at the 3 o'clock axis, 5 cm from the nipple that correlates to the mammogram finding, measuring 0.7 x 0.4 x 0.2 cm. There is no suspicious shadowing or distortion. No solid mass. IMPRESSION: 1. Benign cyst in the right breast correlates to the mammogram finding. 2. Annual bilateral mammographic screening is recommended unless otherwise clinically indicated. ASSESSMENT: BI-RADS Category 2: Benign.
== END 2024-10-02 23:59 | disposition home or self-care (01) ==
PROVIDERS: PCP Family Medicine; Visit Provider Family Medicine
DX: N60.01 Solitary cyst of right breast (principal); R92.321 Mammographic fibroglandular density, right breast
CPT/HCPCS: 76641; 77061; 77065; G0279

== ENCOUNTER 2024-10-05 10:28 | Day surgery (SDC) | payer BC, SELFPAY ==
[2024-10-02 15:48] VITALS: BMI 29.0
--- NOTE | 2024-10-04 16:43 | EXP.HP ---
History of Present Illness *Admission Date: 10/05/24 *Reason for visit:: Family history and prior history of colon polyps *History of present illness: Mrs. Bhatt is a 63-year-old female who is here for screening colonoscopy. She did have a colonoscopy in 2017 and had colon polyps removed. Her mother from advanced stage IV colon cancer. The examination is deemed medically necessary for screening colonoscopy. The patient has been seen, interviewed and examined prior to the procedure by both myself and the anesthesia provider. [facility] Disclaimer: The information contained in this section may have been updated after the patient was seen, as this information can be updated by other users. Medical History Hypertension Surgical History H/O left wrist surgery Family History Other Family history of cancer Social History Smoking Status: Current every day smoker alcohol intake: never substance use type: denies use current occupational status: employed Travel in the last 8 weeks?: None Have you lived/traveled outside [place] in past 30 days?: No Contact w/someone who lives/traveled outside [place] past 30 days?: No Exposure to someone with infectious disease in past 14 days?: No Do you have a fever (greater than 100.4 F or 38 C)?: No Have you tested positive for COVID-19?: No Exposed to someone with COVID-19 in past 14 days?: No Do you have a sore throat?: No Do you have a cough?: No Do you have any weakness?: No Do you have any diarrhea?: No Are you experiencing any unusual bleeding?: No Do you have any muscle aches/pain?: No Do you have any abdominal pain?: No Are you experiencing loss of taste or smell?: No Other Medical History Have you received the Pneumonia Vaccine: No Review of Systems Review of Systems Review of systems (narrative): Negative *Cardiovascular Comments: Negative *Gastrointestinal Comments: Negative *Genitourinary Comments: Negative *Musculoskeletal Comments: Negative *Neurologic Comments: Negative Meds Home Medications and Allergies Home Medications ?Medication ?Instructions ?Recorded ?Confirmed ?Type irbesartan 150 mg tablet 150 mg PO HS 05/09/24 10/05/24 History New Prescriptions to Start Prescriptions: Allergies Allergy/AdvReac Type Severity Reaction Status Date / Time No Known Allergies Allergy Verified 10/05/24 10:50 Exam Data for Last 24 hours I & O for Last 24 hours: Intake & Output 10/01/24 10/02/24 10/03/24 10/04/24 23:59 23:59 23:59 23:59 Weight 180 lb *Routine HEENT Exam Head: Present normocephalic Eye: Present EOMI and PERRL ENT: Present mucous membranes moist *Routine Neck Exam Neck: Present supple *Routine Respiratory Exam Respiratory: Present CTA bilaterally *Routine Cardiovascular Exam Cardiovascular: Present RRR *Routine Abdominal Exam Abdominal: Present soft and normoactive bowel sounds; Absent tenderness *Routine Rectal Exam Rectal:: deferred *Routine Genitalia Exam Genitalia:: deferred *Routine Extremities Exam Extremities: Absent cyanosis, clubbing or edema *Routine Skin Exam Skin: Present warm; Absent rash *Routine Neurological Exam Neurological: Present alert and oriented X3 Assessment and Plan *Assessment and plan (1) Personal history of colon polyps, unspecified: Status: Acute Category: Medical Code(s): Z86.0100 - Personal history of colon polyps, unspecified (2) Family history of colon cancer in mother: Status: Acute Category: Medical Code(s): Z80.0 - Family history of malignant neoplasm of digestive organs Plan A/P: 1. Personal history of colon polyps and family history of colon cancer (mother) is the preprocedural diagnosis. The patient's last colonoscopy was 2016 and polyps were removed. The patient will be anesthetized/sedated using MAC sedation. The patient has been seen and examined. Cardiac and lung assessment prior to the examination is stable. Proceed with planned screening/surveillance colonoscopy.
[2024-10-05] MEDS: LACTATED RINGERS 1000ML 1,000 ML 50 ML IV (10:48)
[2024-10-05 10:50] VITALS: BP 123/79; PULSE 87; RESP 18; TEMP 36.1; O2SAT 98
--- NOTE | 2024-10-05 11:07 | EXP.ANES.CKL ---
[facility] Disclaimer: The information contained in this section may have been updated after the patient was seen, as this information can be updated by other users. Medical History Hypertension Surgical History H/O left wrist surgery Family History Other Family history of cancer Social History Smoking Status: Current every day smoker alcohol intake: never substance use type: denies use current occupational status: employed Travel in the last 8 weeks?: None Have you lived/traveled outside [place] in past 30 days?: No Contact w/someone who lives/traveled outside [place] past 30 days?: No Exposure to someone with infectious disease in past 14 days?: No Do you have a fever (greater than 100.4 F or 38 C)?: No Have you tested positive for COVID-19?: No Exposed to someone with COVID-19 in past 14 days?: No Do you have a sore throat?: No Do you have a cough?: No Do you have any weakness?: No Do you have any diarrhea?: No Are you experiencing any unusual bleeding?: No Do you have any muscle aches/pain?: No Do you have any abdominal pain?: No Are you experiencing loss of taste or smell?: No [facility] Anesthesia Checklist Patient Identification Patient Identification: Arm Band and Verbal (Name & ) Structural Data Admitted From: Home Planned Operative Procedure/s: colonoscopy Consent for Planned Operative Procedure(s) Verified: Yes Verified Documents: Surgical Consent NPO Status Verified Time NPO: 00:00 Chart Verification Results Verified: None Additional verifications Anesthesia Reactions: No Hx Blood Transfusions: No Blood Transfusion Reaction: No Airway Assessment Mallampati Score:: Class II C-Spine Mobility Assessed: Yes TMJ Mobility Assessed: Yes Dentition: Good Dentition Neurological Assessment Level of Consciousness: Awake, Alert and Appropriate Hx Seizures: No Numbness or tingling in extremities: No Anesthesia Plan Anesthesia Risk discussed: Yes Anesthesia Plan: Verified ASA Class: II Anesthesia Type: MAC
--- NOTE | 2024-10-05 11:51 | P.PCN_ITS ---
[facility] Procedure Note Date: 10/05/24 Time: 11:52 Procedure Note:: Colonoscopy Procedure Report: Colonoscopy with cold snare polypectomy Endoscopist: Hari Romero II, MD Referring physician: Raymundo Lewis MD Date of Procedure: October 05, 2024 Equipment: Olympus [id number] adult colonoscope Sedation: MAC sedation Indication: Mrs. Bhatt is a 63-year-old female who is here for follow-up screening/surveillance colonoscopy. She did have a colonoscopy with pr in 2017 and had 4 diminutive polyps (hyperplastic polyps) removed. Her mother had advanced stage IV colon cancer in her mid 70s. The patient reports no abdominal pain, weight loss, change in her bowel habits or rectal bleeding. Procedure: Prior to the procedure, a history and physical exam was performed, and patient's medications and allergies were reviewed. The risks, benefits and alternatives of the sedation and procedure were discussed with the patient. All questions were answered and informed consent was obtained. The patient was brought to the procedure room. Patient identification and proposed procedure were verified by the physician and the nurse. The patient was placed in a left lateral decubitus position and the scope was passed under direct vision. Throughout the procedure, the patient's blood pressure, pulse, and oxygen saturations were monitored continuously. The colonoscopy was accomplished without difficulty. The patient tolerated the procedure well. Findings: On digital rectal examination there was normal rectal tone. There were no external hemorrhoids. The colonoscope was introduced through the anal canal to the rectum and advanced to the cecum. The ileocecal valve and appendiceal orifice were identified. The scope was advanced a short distance into the ileum which appeared grossly normal. The scope was then withdrawn into the colon. There was a single 3 to 4 mm sigmoid polyp removed via cold snare polypectomy. The remaining cecum, ascending and transverse colon and mucosa were grossly normal. There were scattered diverticuli throughout the descending and sigmoid colon (LEFT colon). The rectum itself was normal. Upon retroflexion within the rectum there were grade 1 internal hemorrhoids. The preparation was excellent throughout with Napoleon Preparation Score of 9. The cecal time was 12 minutes. Impression: 1. Diminutive sigmoid colon polyp 2. Left-sided diverticulosis 3. Grade 1 internal hemorrhoids Plan: I will follow-up the polyp histology and recommend repeat screening/surveillance colonoscopy again in 5 years based on her family history. I would encourage psyllium bulking fiber supplementation on a maintenance basis.
[2024-10-05 11:53] VITALS: BP 96/61; PULSE 97; RESP 18; TEMP 36.3; O2SAT 97
[2024-10-05 12:03] VITALS: BP 108/74; PULSE 97; O2SAT 96
[2024-10-05 12:13] VITALS: BP 108/68; PULSE 96; O2SAT 97
[2024-10-05 12:23] VITALS: BP 107/74; PULSE 94; RESP 18; O2SAT 98
== END 2024-10-05 12:23 | disposition home or self-care (01) ==
PROVIDERS: PCP Family Medicine; Visit Provider Internal Medicine Gastroenterology
PROC: 0DJD8ZZ Inspection of Lower Intestinal Tract, Via Natural or Artificial Opening Endoscopic (ICD-10-PCS; CPT 45378; principal; 2024-10-05 12:00)
DX: Z12.11 Encounter for screening for malignant neoplasm of colon (principal); D12.5 Benign neoplasm of sigmoid colon; K57.90 Diverticulosis of intestine, part unspecified, without perforation or abscess without bleeding; K64.0 First degree hemorrhoids; I10 Essential (primary) hypertension; F17.200 Nicotine dependence, unspecified, uncomplicated; Z79.899 Other long term (current) drug therapy; Z86.0100 Personal history of colon polyps, unspecified; Z80.0 Family history of malignant neoplasm of digestive organs
CPT/HCPCS: 45385; J2003; J2704; J7120